=== PATIENT | female | born 1990 | race Two or more races ===

== ENCOUNTER → 2019-09-21 | Outpatient (CLI) | payer OTHER | END | disposition home or self-care (01) | LOC: PRENATAL 14:00 | DX: Z36.89 Encounter for other specified antenatal screening (principal); O36.80X1 Pregnancy with inconclusive fetal viability, fetus 1 ==

== ENCOUNTER → 2019-11-05 | Outpatient (CLI) | payer OTHER | END | disposition home or self-care (01) | LOC: PRENATAL 08:51 | PROVIDERS: ATTEND Obstetrics & Gynecology | DX: O35.0XX1 Maternal care for (suspected) central nervous system malformation in fetus, fetus 1 (principal); O35.3XX1 Maternal care for (suspected) damage to fetus from viral disease in mother, fetus 1 ==

== ENCOUNTER 2020-03-04 13:45 | Inpatient (IN) | payer OTHER ==
[~2020-03-04] VITALS: Ht 151.1 cm; Wt 2.7 kg
[2020-03-26] MEDS ORDERED: PRENATAL + DHA1 EAC1 (08:05)
[2020-04-02] MEDS ORDERED: INTESTINEX680 M1 PO (14:57)
== END 2020-04-02 15:42 | disposition home or self-care (01) | DRG 786 ==
LOC: LDR 03-25 19:46 → OB/GYN 03-26 19:54 → LDR 03-27 13:31 → O/R 03-28 00:16 → SURH 03-28 14:45
PROVIDERS: ADMIT Obstetrics & Gynecology; ATTEND Obstetrics & Gynecology
PROC: 3E033VJ Introduction of Other Hormone into Peripheral Vein, Percutaneous Approach (ICD-10-PCS; 2020-03-25)
PROC: 4A1HXCZ Monitoring of Products of Conception, Cardiac Rate, External Approach (ICD-10-PCS; 2020-03-25)
PROC: B246ZZZ Ultrasonography of Right and Left Heart (ICD-10-PCS; 2020-03-25)
PROC: 10D00Z1 Extraction of Products of Conception, Low, Open Approach (ICD-10-PCS; principal; 2020-03-26 18:00)
PROC: 30233N1 Transfusion of Nonautologous Red Blood Cells into Peripheral Vein, Percutaneous Approach (ICD-10-PCS; 2020-03-27)
PROC: 4A12X4Z Monitoring of Cardiac Electrical Activity, External Approach (ICD-10-PCS; 2020-03-28)
DX: O61.0 Failed medical induction of labor (principal); O75.1 Shock during or following labor and delivery; O99.43 Diseases of the circulatory system complicating the puerperium; O72.2 Delayed and secondary postpartum hemorrhage; D62 Acute posthemorrhagic anemia; I47.1 Supraventricular tachycardia; O76 Abnormality in fetal heart rate and rhythm complicating labor and delivery; Z20.828 Contact with and (suspected) exposure to other viral communicable diseases; Z3A.39 39 weeks gestation of pregnancy; Z37.0 Single live birth; O90.81 Anemia of the puerperium; O72.3 Postpartum coagulation defects; O75.4 Other complications of obstetric surgery and procedures

== ENCOUNTER 2023-04-15 10:48 | Emergency (ER) | payer OTHER ==
[~2023-04-15] VITALS: Ht 157.5 cm; Wt 54.4 kg
[~2023-04-15 10:48] MED LIST: INTESTINEX680 M1 PO; PRENATAL + DHA1 EAC1
[2023-04-15 12:56] LABS: HEMATOCRIT 41.3 % (36.0-45.00); HEMOGLOBIN 14.1 g/dL (12.0-15.00); MEAN CELL VOLUME 89.7 fL (80.00-100.00); MEAN CORPUSCULAR HEMOGLOBIN 30.7 pg (27.00-32.0); MEAN CORPUSCULAR HGB CONC 34.2 g/dl (32.0-36.0); PLATELET COUNT 238 K/uL (150-450); RED CELL DISTRIBUTION WIDTH 13.1 % (11.5-14.5)
== END 2023-04-15 13:58 | disposition home or self-care (01) ==
LOC: ER 10:49
PROVIDERS: General Practice
DX: H66.91 Otitis media, unspecified, right ear (principal)